=== PATIENT | female | born 1955 | race Caucasian/White ===

== ENCOUNTER 2017-10-22 07:13 | Outpatient (CLI) | payer OTHER ==
[~2017-10-22 07:13] MED LIST: GILTUSS TR TAB1 EACH PO; HYZAAR 50/12.51 TAB PO; SYNTHROID175 MCG PO; ZITHROMAX TRI-500 MG PO; ZYRTEC10 MG PO
== END 2017-10-22 07:21 | disposition home or self-care (01) ==
LOC: LAB 07:13
DX: E03.8 Other specified hypothyroidism (principal); E78.00 Pure hypercholesterolemia, unspecified; E11.638 Type 2 diabetes mellitus with other oral complications

== ENCOUNTER 2018-01-14 09:02 | Outpatient (CLI) | payer OTHER | END 2018-01-14 10:36 | disposition home or self-care (01) | LOC: RAD 09:02 | DX: S20.219A Contusion of unspecified front wall of thorax, initial encounter (principal) ==

== ENCOUNTER 2018-03-25 07:50 | Outpatient (CLI) | payer OTHER | END 2018-03-25 08:00 | disposition home or self-care (01) | LOC: LAB 07:50 | DX: E21.2 Other hyperparathyroidism (principal); E11.65 Type 2 diabetes mellitus with hyperglycemia; E78.2 Mixed hyperlipidemia ==

== ENCOUNTER 2018-10-07 08:04 | Outpatient (CLI) | payer OTHER | END 2018-10-07 08:10 | disposition home or self-care (01) | LOC: LAB 08:04 | DX: E11.69 Type 2 diabetes mellitus with other specified complication (principal); E78.00 Pure hypercholesterolemia, unspecified; E03.8 Other specified hypothyroidism ==

== ENCOUNTER 2019-02-10 07:13 | Outpatient (CLI) | payer OTHER | END 2019-02-10 12:33 | disposition home or self-care (01) | LOC: LAB 07:13 | DX: E03.8 Other specified hypothyroidism (principal); E78.00 Pure hypercholesterolemia, unspecified; E11.65 Type 2 diabetes mellitus with hyperglycemia ==

== ENCOUNTER → 2019-07-15 07:55 | Outpatient (CLI) | payer OTHER | END | disposition home or self-care (01) | LOC: LAB 07:55 | DX: E11.65 Type 2 diabetes mellitus with hyperglycemia (principal); E78.00 Pure hypercholesterolemia, unspecified; E03.8 Other specified hypothyroidism; Z11.59 Encounter for screening for other viral diseases; E55.9 Vitamin D deficiency, unspecified ==